=== PATIENT | male | born 1955 | race Caucasian/White ===

== ENCOUNTER 2024-09-11 18:53 | Inpatient (IN) | payer MEDICARE, OTHER ==
[~2024-09-11] VITALS: Ht 185.4 cm; Wt 81.6 kg
[~2024-09-11 18:53] MED LIST: CEFEPIME 1 GM in IV D5W 50 ML IV SCH
[2024-09-11 19:57] LABS: BASOPHILS % (AUTO) 0.3 % (0.0-2.0); EOSINOPHILS # (AUTO) 0.2 K/uL (0.0-0.7); EOSINOPHILS % (AUTO) 2.3 % (0.0-6.0); HEMATOCRIT 41 % (39-51); HEMOGLOBIN 14.5 g/dL (13.5-17.5); LYMPHOCYTES # (AUTO) 1.2 K/uL (0.8-4.8); LYMPHOCYTES % (AUTO) 15.2 % (20.0-44.0); MEAN CORPUSCULAR HEMOGLOBIN 30 PG (26.0-33.0); MEAN CORPUSCULAR HGB CONC 35 g/dl (31.0-36.0); MEAN CORPUSCULAR VOLUME 84 fL (80-96); MONOCYTES # (AUTO) 0.7 K/uL (0.1-1.30); MONOCYTES % (AUTO) 9.5 % (2.0-12.0); NEUTROPHILS # (AUTO) 5.6 K/uL (1.8-8.9); NEUTROPHILS % (AUTO) 72.7 % (43.0-81.0); PLATELET COUNT (AUTO) 173 K/uL (150-450); RED BLOOD CELL COUNT(AUTO) 4.91 MIL/uL (4.5-6.0); RED CELL DISTRIBUTION WIDTH 16.7 % (11.5-15.0); WHITE BLOOD COUNT (AUTO) 7.8 K/uL (4.3-11.0)
[2024-09-11 20:09] LABS: CALCIUM, SERUM 8.5 mg/dL (8.5-10.1); CARBON DIOXIDE 26 mmol/L (21-32); CHLORIDE 99 mmol/L (98-107); CREATININE 0.7 mg/dL (0.6-1.3); GLUCOSE 114 mg/dL (74-106); POTASSIUM 3.3 mmol/L (3.5-5.1); SODIUM SERUM 134 mmol/L (136-145); UREA NITROGEN, BLOOD 10 mg/dL (7-18)
[2024-09-11 20:15] LABS: ALANINE AMINOTRANSFERASE 13 U/L (12-78); ALBUMIN 3.1 g/dL (3.4-5.0); ALCOHOL, BLOOD < 3 mg/dL (0-10); ALKALINE PHOSPHATASE 107 U/L (46-116); ASPARTATE AMINOTRANSFERASE 14 U/L (15-37); BILIRUBIN,DIRECT 0.4 mg/dL (0.0-0.2); BILIRUBIN,TOTAL 1.2 mg/dL (0.2-1.0); TOTAL PROTEIN, SERUM 6.9 g/dL (6.4-8.2)
[2024-09-11 20:16] LABS: ACETAMINOPHEN 0 ug/ml (10-30)
[2024-09-11 20:36] LABS: APPEARANCE,URINE CLEAR (CLEAR); BILIRUBIN,URINE NEGATIVE (NEGATIVE); BLOOD, URINE 2+ Ery/uL (NEGATIVE); KETONES,URINE 1+ mg/dL (NEGATIVE); LEUKOCYTE ESTERASE ,URINE 2+ (NEGATIVE); NITRITE, URINE POSITIVE (NEGATIVE); PROTEIN,URINE NEGATIVE (NEGATIVE); UGLUCOSE NEGATIVE (NEGATIVE); UROBILINOGEN,URINE 0.2 EU/dL (0.2)
[2024-09-11 20:37] LABS: COLOR,URINE STRAW (YELLOW)
[2024-09-11 20:44] LABS: AMPHETAMINE, URINE NEGATIVE (NEGATIVE); BARBITURATE, URINE NEGATIVE (NEGATIVE); BENZODIAZEPINE, URINE NEGATIVE (NEGATIVE); CANNABINOID, URINE NEGATIVE (NEGATIVE); COCCAINE, URINE NEGATIVE (NEGATIVE); OPIATE, URINE NEGATIVE (NEGATIVE); PHENCYCLIDINE SCREEN,URINE NEGATIVE (NEGATIVE)
[2024-09-11] MEDS ORDERED: CEFTRIAXONE 1GM BAG (ER ONLY) 50 ML IV ONE (21:04)
[2024-09-11] MEDS: CEFTRIAXONE 1GM BAG (ER ONLY) 1 GM/50 ML PIGGYBACK IV ONE (21:12)
[2024-09-11 21:24] LABS: BACTERIA,URINE Many /HPF (None Seen); SQUAMOUS EPITHELIAL CELL,UR None Seen /HPF (None Seen)
[2024-09-11 21:25] LABS: ADD URINE CULTURE YES; CALCIUM OXALATE CRYSTALS,UR Few /HPF (None Seen)
[2024-09-11 21:26] LABS: RBC,URINE 0-2 /HPF (0-2)
[2024-09-11] MEDS ORDERED: hydrALAZINE HCL IV 20 MG VIAL IV PRN (22:00)
[2024-09-11] MEDS ORDERED: MORPHINE SULFATE INJ 2 MG/ML DISP.SYRIN IV PRN (22:00)
[2024-09-11] MEDS ORDERED: ONDANSETRON HCL/PF 4 MG/2 ML VIAL IVP PRN (22:00)
[2024-09-11] MEDS ORDERED: GLIM1TAB PO (22:16)
[2024-09-11] MEDS ORDERED: ATOR40TA PO (22:16)
[2024-09-11] MEDS ORDERED: KETO5DRO EACHEYE (22:16)
[2024-09-11] MEDS ORDERED: MELA3CAP2 PO (22:16)
[2024-09-11] MEDS ORDERED: METO25TA4 PO (22:16)
[2024-09-11] MEDS ORDERED: BIMA2.5D5 EACHEYE (22:16)
[2024-09-11] MEDS ORDERED: INSU100V28 SQ (22:16)
[2024-09-11] MEDS ORDERED: AZEL6DRO5 EACHEYE (22:16)
[2024-09-11] MEDS ORDERED: BRIM5DRO2 EACHEYE (22:16)
[2024-09-11] MEDS ORDERED: DEXTROSE 50%-WATER 50 ML DISP.SYRIN IV PRN (22:30)
[2024-09-11 22:45] VITALS: BP 120/76; TEMP 98.6; O2SAT 95
[2024-09-12] MEDS: POTASSIUM CHLORIDE 20 MEQ TAB.PRT.SR PO ONE (00:13)
[2024-09-12 04:48] VITALS: BP 120/76; TEMP 98.6; O2SAT 95
[2024-09-12] MEDS: BLOOD SUGAR DIAGNOSTIC 1 EACH STRIP VI SCH (06:31)
[2024-09-12] MEDS: INSULIN REGULAR, HUMAN 100 UNIT/ML 3 ML VIAL SQ PRN (06:32)
[2024-09-12 06:43] LABS: BASOPHILS % (AUTO) 0.6 % (0.0-2.0); EOSINOPHILS # (AUTO) 0.2 K/uL (0.0-0.7); EOSINOPHILS % (AUTO) 3.7 % (0.0-6.0); HEMATOCRIT 44 % (39-51); HEMOGLOBIN 15.5 g/dL (13.5-17.5); LYMPHOCYTES % (AUTO) 14.6 % (20.0-44.0); MEAN CORPUSCULAR HEMOGLOBIN 30 PG (26.0-33.0); MEAN CORPUSCULAR HGB CONC 36 g/dl (31.0-36.0); MEAN CORPUSCULAR VOLUME 84 fL (80-96); MONOCYTES # (AUTO) 0.7 K/uL (0.1-1.30); MONOCYTES % (AUTO) 10.3 % (2.0-12.0); NEUTROPHILS # (AUTO) 4.6 K/uL (1.8-8.9); NEUTROPHILS % (AUTO) 70.8 % (43.0-81.0); PLATELET COUNT (AUTO) 168 K/uL (150-450); RED BLOOD CELL COUNT(AUTO) 5.19 MIL/uL (4.5-6.0); RED CELL DISTRIBUTION WIDTH 16.3 % (11.5-15.0); WHITE BLOOD COUNT (AUTO) 6.5 K/uL (4.3-11.0)
[2024-09-12 06:52] LABS: ALBUMIN 3.3 g/dL (3.4-5.0); BILIRUBIN,TOTAL 1.4 mg/dL (0.2-1.0); CALCIUM, SERUM 8.8 mg/dL (8.5-10.1); CREATININE 0.7 mg/dL (0.6-1.3); MAGNESIUM 1.8 mg/dL (1.8-2.4); PHOSPHORUS 3.2 mg/dL (2.5-4.9); POTASSIUM 3.7 mmol/L (3.5-5.1); TOTAL PROTEIN, SERUM 7.7 g/dL (6.4-8.2)
[2024-09-12] MEDS ORDERED: ACET-73 PO (07:49)
[2024-09-12] MEDS ORDERED: BISA10SU11 RC (07:49)
[2024-09-12] MEDS ORDERED: MAGN400O6 PO (07:49)
[2024-09-12] MEDS ORDERED: GLIM2TAB31 PO (07:49)
[2024-09-12] MEDS ORDERED: ACET325T53 PO (07:49)
[2024-09-12] MEDS ORDERED: NA P133E RC (07:49)
[2024-09-12 08:00] VITALS: BP 122/86; TEMP 97.8; O2SAT 96
[2024-09-12 08:25] VITALS: BP 122/86; TEMP 97.6; O2SAT 96
[2024-09-12] MEDS ORDERED: Medication Not On Formulary EA (Azelastine Hcl 1 DROP) LEFTEYE SCH (09:00)
[2024-09-12] MEDS: METOPROLOL SUCCINATE 25 MG TAB.SR.24H PO SCH (09:00)
[2024-09-12] MEDS: KETOROLAC EYE 0.5% 3 ML BOTTLE EACHEYE SCH (09:38)
[2024-09-12] MEDS: HEPARIN SODIUM, PORCINE 5000 UNITS/1 ML VIAL SQ SCH (09:40)
[2024-09-12] MEDS: CEFEPIME 1 GM in IV D5W 50 ML IV SCH (09:41)
[2024-09-12] MEDS: OLANZAPINE ZYDIS 5 MG TAB.RAPDIS PO SCH (10:30)
[2024-09-12] MEDS ORDERED: OLANZAPINE 10 MG VIAL IM PRN (10:30)
[2024-09-12 16:00] VITALS: BP 118/86; TEMP 98.4; O2SAT 95
[2024-09-12 16:37] VITALS: BP 118/86; TEMP 98.4; O2SAT 95
[2024-09-12 20:00] VITALS: BP 128/85; TEMP 98.5; O2SAT 96
[2024-09-12] MEDS ORDERED: BIMATOPROST 2.5 ML DROPS OP SCH (22:00)
[2024-09-12] MEDS: ATORVASTATIN 40 MG TABLET PO SCH (22:00)
[2024-09-12] MEDS: LATANOPROST EYE DROP 0.005% 2.5 ML BOTTLE OP SCH (22:27)
[2024-09-12] MEDS: *INSULIN REGULAR(HUMULIN R)HUM 100 UNIT/ML VIAL SQ PRN (22:43)
[2024-09-13 07:30] VITALS: BP 134/85; TEMP 98.1; O2SAT 96
[2024-09-13 14:18] LABS: THYROID STIMULATING HORMONE 1.71 uIU/mL (0.358-3.74)
[2024-09-13] MEDS: BRIMONIDINE TARTRATE OPHT SOLN 5 ML BOTTLE OP SCH (16:06)
[2024-09-13] MEDS: TIMOLOL 0.5% SOLN OPHTH 5 ML BOTTLE OP SCH (16:07)
[2024-09-13 20:00] VITALS: BP 105/70; TEMP 97.9; O2SAT 96
[2024-09-14 09:07] LABS: FOLIC ACID 8.5 ng/mL (>3.0)
[2024-09-14 10:14] VITALS: BP 133/93; TEMP 97.9; O2SAT 97
[2024-09-14] MEDS ORDERED: LORAZEPAM 1 MG TABLET PO PRN (10:30)
[2024-09-14] MEDS: MEROPENEM 1 G in IV NS 0.9% 100 ML IV SCH (10:49)
[2024-09-14 12:16] LABS: BASOPHILS % (AUTO) 0.4 % (0.0-2.0); EOSINOPHILS # (AUTO) 0.2 K/uL (0.0-0.7); EOSINOPHILS % (AUTO) 2.8 % (0.0-6.0); HEMATOCRIT 38 % (39-51); HEMOGLOBIN 13.3 g/dL (13.5-17.5); LYMPHOCYTES # (AUTO) 0.6 K/uL (0.8-4.8); LYMPHOCYTES % (AUTO) 8.3 % (20.0-44.0); MEAN CORPUSCULAR HEMOGLOBIN 30 PG (26.0-33.0); MEAN CORPUSCULAR HGB CONC 35 g/dl (31.0-36.0); MEAN CORPUSCULAR VOLUME 86 fL (80-96); MONOCYTES # (AUTO) 0.5 K/uL (0.1-1.30); MONOCYTES % (AUTO) 7.4 % (2.0-12.0); NEUTROPHILS # (AUTO) 5.9 K/uL (1.8-8.9); NEUTROPHILS % (AUTO) 81.1 % (43.0-81.0); PLATELET COUNT (AUTO) 157 K/uL (150-450); RED BLOOD CELL COUNT(AUTO) 4.44 MIL/uL (4.5-6.0); RED CELL DISTRIBUTION WIDTH 16.3 % (11.5-15.0); WHITE BLOOD COUNT (AUTO) 7.3 K/uL (4.3-11.0)
[2024-09-14] MEDS ORDERED: MERO1PIG IV (12:17)
[2024-09-14 12:28] LABS: CREATININE 0.6 mg/dL (0.6-1.3); MAGNESIUM 1.5 mg/dL (1.8-2.4); PHOSPHORUS 2.9 mg/dL (2.5-4.9); POTASSIUM 4.2 mmol/L (3.5-5.1)
[2024-09-14 20:00] VITALS: BP 98/68; TEMP 98.4; O2SAT 97
[2024-09-15] MEDS: ACETAMINOPHEN 325 MG TABLET PO PRN (01:11)
[2024-09-15 08:00] VITALS: BP 128/81; TEMP 98.1; O2SAT 97
[2024-09-15] MEDS: SERTRALINE HCL 25 MG TABLET PO SCH (09:00)
[2024-09-15 16:00] VITALS: BP_SYST 123; BP_SYST 148; BP_DIAS 81; BP_DIAS 83; TEMP 97.8; TEMP 98.1; O2SAT 95; O2SAT 97
[2024-09-15 20:00] VITALS: BP_SYST 100; BP_SYST 96; BP_DIAS 58; BP_DIAS 68; TEMP 98.1; O2SAT 98
== END 2024-09-16 19:20 | DRG 698 ==
LOC: ER 18:55 → MED 22:00
PROVIDERS: ADMIT Internal Medicine; ATTEND Nurse Practitioner Acute Care
DX: T83.518A Infection and inflammatory reaction due to other urinary catheter, initial encounter (principal); G93.41 Metabolic encephalopathy; N39.0 Urinary tract infection, site not specified; E87.1 Hypo-osmolality and hyponatremia; R45.851 Suicidal ideations; F03.911 Unspecified dementia, unspecified severity, with agitation; E87.6 Hypokalemia; I25.10 Atherosclerotic heart disease of native coronary artery without angina pectoris; I10 Essential (primary) hypertension; E11.36 Type 2 diabetes mellitus with diabetic cataract; Z20.822 Contact with and (suspected) exposure to COVID-19; N31.9 Neuromuscular dysfunction of bladder, unspecified; J44.9 Chronic obstructive pulmonary disease, unspecified; Z91.010 Allergy to peanuts; Z91.048 Other nonmedicinal substance allergy status; B96.89 Other specified bacterial agents as the cause of diseases classified elsewhere; H54.62 Unqualified visual loss, left eye, normal vision right eye; Z53.20 Procedure and treatment not carried out because of patient's decision for unspecified reasons; F29 Unspecified psychosis not due to a substance or known physiological condition; B96.5 Pseudomonas (aeruginosa) (mallei) (pseudomallei) as the cause of diseases classified elsewhere; B96.20 Unspecified Escherichia coli [E. coli] as the cause of diseases classified elsewhere; Y84.6 Urinary catheterization as the cause of abnormal reaction of the patient, or of later complication, without mention of misadventure at the time of the procedure; Y92.129 Unspecified place in nursing home as the place of occurrence of the external cause
CPT/HCPCS: 36415; 80048-TC; 80053-TC; 80076-TC; 81001; 82607-TC; 82962-TC; 83735-TC; 83921; 84100-TC; 84425; 84443-TC; 85025-TC; 87040-TC; 87086-TC; 87186-TC; 97110-TC; 97112-TC; 97530-TC; 97535-TC; A4223; G0378; G0480; J0692; J0696; J1644; J1815; J2185; J7030; J7050; J7060